=== PATIENT | male | born 1960 | race African-American/Black ===

== ENCOUNTER 2024-01-06 12:30 | Inpatient (IN) | payer OTHER ==
[2024-01-06 12:59] VITALS: BMI 27.5
[2024-01-06] MEDS ORDERED: BENZONATATE 200 MG CAPSULE PO PRN (14:46)
[2024-01-06] MEDS ORDERED: BENZOCAINE/MENTHOL (CHLORASEPTIC ) LOZENGE MM PRN (14:46)
[2024-01-06] MEDS ORDERED: ONDANSETRON *ODT* 4 MG TABLET SL PRN (14:46)
[2024-01-06] MEDS ORDERED: MAG HYDROX/AL HYDROX/SIMETH 30 ML UNIT-DOSE CUP PO PRN (14:46)
[2024-01-06] MEDS ORDERED: LOPERAMIDE HCL 2 MG CAPSULE PO PRN (14:46)
[2024-01-06] MEDS ORDERED: MAGNESIUM HYDROX 2400MG/30ML ORAL SUSPENSION 30 ML CUP PO PRN (14:46)
[2024-01-06] MEDS ORDERED: BISMUTH SUBSALICYLATE 262 MG/15 ML BTL PO PRN (14:46)
[2024-01-06] MEDS ORDERED: guaiFENesin 600 MG TABLET.ER (FP) PO PRN (14:46)
[2024-01-06] MEDS ORDERED: NALOXONE HCL 0.4 MG/ML VIAL IM PRN (14:46)
[2024-01-06] MEDS ORDERED: NALOXONE (NARCAN) HCL 4 MG/0.1 ML SPRAY NS PRN (14:46)
[2024-01-06] MEDS ORDERED: NALOXONE (NYS OPIOID OVERDOSE PROGRAM) 4 MG/0.1 ML SPRAY NS PRN (14:46)
[2024-01-06] MEDS ORDERED: POLYETHYLENE GLYCOL (HEALTHYLAX) 3350 17 GM PACKET PO PRN (14:46)
[2024-01-06] MEDS ORDERED: cloNIDine HCL 0.1 MG TABLET ONE (15:18)
[2024-01-06] MEDS: cloNIDine HCL 0.1 MG TABLET PO ONE (15:28)
[2024-01-06] MEDS: cloNIDine HCL 0.1 MG TABLET PO PRN (20:50)
[2024-01-06] MEDS: THIAMINE 100 MG TABLET PO SCH (22:18)
[2024-01-06] MEDS: APIXABAN 5 MG TABLET PO SCH (22:18)
[2024-01-06] MEDS: MELATONIN 5 MG TABLETS PO SCH (22:18)
[2024-01-07] MEDS: PANTOPRAZOLE 40 MG TABLET PO SCH (10:22)
[2024-01-07] MEDS: PRENATAL VITAMINS W/ FOLIC ACID TABLET (FP) PO SCH (10:22)
[2024-01-07] MEDS: VALSARTAN 160 MG TABLET PO SCH (10:22)
[2024-01-07] MEDS: methaDONE HCL 10 MG TABLET (FOR DETOX USE ONLY) PO ONE (10:24)
[2024-01-07 17:43] LABS: HEMATOCRIT 41.5 % (35.4-49); MCH 26.7 pg (25.7-33.7); MCHC 33.6 g/dl (32.0-35.9); MEAN CELL VOLUME 79.3 fl (80-96); MEAN PLT VOLUME 10.2 fl (7.5-11.1); PLATELET COUNT 206 10^3/uL (134-434); RBC 5.23 M/mm3 (4.00-5.60); RDW 13.9 % (11.9-15.9); WHITE BLOOD COUNT 7.5 K/mm3 (4.0-10.0)
[2024-01-07 17:59] LABS: POTASSIUM 4.1 mmol/L (3.5-5.1)
[2024-01-07 18:08] LABS: ALBUMIN 3.9 g/dl (3.4-5.0); BLOOD UREA NITROGEN 8.2 mg/dL (7-18); CALCIUM 9.7 mg/dL (8.5-10.1)
[2024-01-07 18:11] LABS: CREATININE 0.9 mg/dL (0.55-1.3)
[2024-01-07 18:12] LABS: BILIRUBIN,TOTAL 0.9 mg/dL (0.2-1)
[2024-01-07 18:13] LABS: TOT PROT 7.6 g/dl (6.4-8.2)
[2024-01-07] MEDS: BACLOFEN 10 MG TABLET (FP) PO PRN (21:01)
[2024-01-07] MEDS: cloNIDine HCL 0.1 MG TABLET PO PRN (21:02)
[2024-01-07] MEDS: hydrOXYzine PAMOATE 25 MG CAPSULE (FP) PO PRN (21:02)
[2024-01-07] MEDS: amLODIPine BESYLATE 5 MG TABLET (FP) PO ONE (23:55)
[2024-01-08] MEDS: ACETAMINOPHEN 325 MG TABLET (FP) PO PRN (00:28)
[2024-01-08] MEDS: amLODIPine BESYLATE 10 MG TABLET (FP) PO SCH (09:40)
[2024-01-08] MEDS: ERGOCALCIFEROL (VIT D2) 50,000 UNIT (1.25 MG) CAPSULE PO ONE (12:20)
[2024-01-09] MEDS: methaDONE HCL 10 MG TABLET (FOR DETOX USE ONLY) PO ONE (09:18)
[2024-01-11 09:28] VITALS: RESP 18; TEMP 97.5
[2024-01-11 09:30] VITALS: PULSE 86
[2024-01-11] MEDS: methaDONE HCL 10 MG TABLET (FOR DETOX USE ONLY) PO ONE (10:19)
[2024-01-11 11:37] VITALS: BP 134/92
== END 2024-01-11 11:39 | disposition home or self-care (01) | DRG 897 ==
LOC: YASAS 12:30 → Y3N 15:34
PROVIDERS: ADMIT Allergy & Immunology; ATTEND Surgery
PROC: HZ2ZZZZ Detoxification Services for Substance Abuse Treatment (ICD-10-PCS; principal; 2024-01-06)
DX: F11.23 Opioid dependence with withdrawal (principal); I48.91 Unspecified atrial fibrillation; I10 Essential (primary) hypertension; K21.9 Gastro-esophageal reflux disease without esophagitis; M54.41 Lumbago with sciatica, right side; G89.29 Other chronic pain; R73.03 Prediabetes; Z79.01 Long term (current) use of anticoagulants; Z87.891 Personal history of nicotine dependence
CPT/HCPCS: 36415; 80053; 80305; 80307; 85027; 86780; 93005; 93010; J0475